=== PATIENT | male | born 1985 | race American Indian/Alaskan Native ===

== ENCOUNTER 2019-12-28 15:06 | Emergency (ER) | payer SELFPAY ==
--- NOTE | 2019-12-28 15:37 | Emergency Department Report ---
Blank Doc - Documentation Documentation: 34-year-old male that presents with fatigue, body aches, and URI symptoms. St ated is DM and was not able to have test strips. This initial assessment/diagnostic orders/clinical plan/treatment(s) is/are subject to change based on patient's health status, clinical progression and re- assessment by fellow clinical providers in the ED. Further treatment and workup at subsequent clinical providers discretion. Patient/guardians urged not to elope from the ED as their condition may be serious if not clinically assessed and managed. Initial orders include: 1- Patient sent to [facility] for further evaluation and treatment 2- labs 3- CXR
[2019-12-28 15:46] VITALS: BP 143/92
[2019-12-28 16:09] LABS: Basophils # (Auto) 0.1 K/mm3 (0.0-0.1); Basophils % (Auto) 0.7 % (0.0-1.8); Eosinophils # (Auto) 0.1 K/mm3 (0.0-0.4); Eosinophils % (Auto) 0.7 % (0.0-4.3); Hematocrit 46.5 % (35.5-45.6); Hemoglobin 15.5 gm/dl (11.8-15.2); Lymphocytes # (Auto) 1.2 K/mm3 (1.2-5.4); Lymphocytes % (Auto) 12.2 % (13.4-35.0); Mean Corpuscular HGB Conc 33 % (32-34); Mean Corpuscular Volume 94 fl (84-94); Monocytes # (Auto) 0.8 K/mm3 (0.0-0.8); Monocytes % (Auto) 8.1 % (0.0-7.3); Platelet Count 319 K/mm3 (140-440); Red Blood Count 4.95 M/mm3 (3.65-5.03); Red Cell Distribution Width 13.1 % (13.2-15.2)
[2019-12-28 16:29] LABS: BUN/Creatinine Ratio 13; Blood Urea Nitrogen 13 mg/dL (9-20); Calcium 10.1 mg/dL (8.4-10.2); Hemolysis Index 11
--- NOTE | 2019-12-28 16:36 | XRay Report ---
CHEST 2 VIEWS INDICATION / CLINICAL INFORMATION: Cough. COMPARISON: None available. FINDINGS: SUPPORT DEVICES: None. HEART / MEDIASTINUM: The heart size and pulmonary vasculature are normal. LUNGS / PLEURA: No significant pulmonary or pleural abnormality. No pneumothorax. ADDITIONAL FINDINGS: No significant additional findings. IMPRESSION: No acute findings. There is no evidence of pneumonia. Signer Name: Manjinder Wagner MD Signed: 12/28/2019 4:31 PM Workstation Name: [id number]
--- NOTE | 2019-12-28 21:51 | Emergency Department Report ---
Minor Respiratory - [facility] Chief Complaint: Upper Respiratory Infection Stated Complaint: WEAKNESS Time Seen by Provider: 12/28/19 15:36 Minor Respiratory: Yes Rhinorrhea, Yes Able to Tolerate Fluids, Yes Cough, No Sore Throat, No Ear Pain, No Sick Contacts, No Hemoptysis, No Chest Pain, No Shortness of Breath, No Fever Other History: 34-year-old -[place] male presents to the emergency room for weakness fatigue cough concern for sinus states that he is having nasal congestion and headache with pressure and body aches. Patient denies any fever reports he has diabetes type 1 but does not have a primary care provider secondary to no insurance. Patient states he is been getting his insulin lumc-bwt-oankddt Novolin NNR. Patient states his blood sugars are up and down and is ran out of strips. ED Review of Systems ROS: Stated complaint: WEAKNESS Other details as noted in HPI ED Past Medical Hx - Past Medical History Previous Medical History?: Yes Hx Diabetes: Yes (Type I) - Surgical History Past Surgical History?: No - Social History Smoking Status: Never Smoker Substance Use Type: None Minor Respiratory Exam - Exam General: Vital signs noted. No distress. Alert and acting appropriately. Neurologic: Alert and oriented, no deficits. Musculoskeletal: Unremarkable. ED Course Vital Signs 12/28/19 15:44 Temperature 98.3 F Pulse Rate 121 H Respiratory 16 Rate Blood Pressure 143/92 O2 Sat by Pulse 100 Oximetry ED Medical Decision Making - Lab Data Result diagrams: 12/28/19 15:49 12/28/19 15:49 - Radiology Data Radiology results: report reviewed Patient: AMY CALLEJAS MR#: [id number] : 1985 Acct:[id number] Age/Sex: 34 / M ADM Date: 12/28/19 Loc: ED Attending Dr: Ordering Physician: NOEMI PICKARD NP Date of Service: 12/28/19 Procedure(s): XR chest routine 2V Accession Number(s): [id number] cc: NOEMI PICKARD NP Fluoro Time In Minutes: CHEST 2 VIEWS INDICATION / CLINICAL INFORMATION: Cough. COMPARISON: None available. FINDINGS: SUPPORT DEVICES: None. HEART / MEDIASTINUM: The heart size and pulmonary vasculature are normal. LUNGS / PLEURA: No significant pulmonary or pleural abnormality. No pn eumothorax. ADDITIONAL FINDINGS: No significant additional findings. IMPRESSION: No acute findings. There is no evidence of pneumonia. Signer Name: Manjinder Wagner MD Signed: 12/28/2019 4:31 PM Workstation Name: [id number] Transcribed By: RT Dictated By: Manjinder Wagner MD Electronically Authenticated By: Manjinder Wagner MD Signed Date/Time: 12/28/191630 DD/ 29 TD/TT: - Medical Decision Making 34-year-old -[place] male presents to the emergency room for weakness fatigue cough concern for sinus states that he is having nasal congestion and headache with pressure and body aches. Patient denies any fever reports he has diabetes type 1 but does not have a primary care provider secondary to no insurance. Patient states he is been getting his insulin tquu-uih-wrexpgx Novolin NNR. Patient states his blood sugars are up and down and is ran out of strips. Patient's labs shows that he is hemoconcentrated with an elevated heart rate concern for possible dehydration. Patient will be given. IV with normal saline. I discussed the patient to take necs-hob-utolalv sinus medicine such as Zyrtec's or Claritin use Flonase daily and Afrin at night. I discussed the patient needs to follow-up with a primary care provider will refer patient to community resources. Critical care attestation.: If time is entered above; I have spent that time in minutes in the direct care of this critically ill patient, excluding procedure time. ED Disposition Clinical Impression: Dehydration, Nasal sinus congestion Disposition: DC-01 TO HOME OR SELFCARE Is pt being admited?: No Does the pt Need Aspirin: No Condition: Stable Instructions: Dehydration (ED), Analgesic/Antihistamine/Decongestant (By mouth) Additional Instructions: Take gnto-mdn-ixdsach Flonase or Nasonex he can use Afrin at night for nasal con gestion. Take tvwj-nxa-xzawues Zyrtec's or Claritin. I would like for you to follow-up with a community provider. Tylenol or ibuprofen as needed for body aches and headache. It is very important for you to increase your fluids. Referrals: PRIMARY MD MICHELINE [Primary Care Provider] - 3-5 Days MIRTHA ZUÑIGA MD [Staff Physician] - 3-5 Days [facility] [Provider Group] - 3-5 Days
[2019-12-28] MEDS ORDERED: SODIUM CHLORIDE 0.9% 1000 ML 1,000 ML IV ONE (23:06)
== END 2019-12-28 23:50 | disposition home or self-care (01) ==
LOC: ED 15:06
DX: E86.0 Dehydration (principal); R09.81 Nasal congestion; E10.9 Type 1 diabetes mellitus without complications
CPT/HCPCS: 36415; 71046; 80048; 82805; 82962; 85025; 96360; 99284; J7030